=== PATIENT | female | born 1990 | race Caucasian/White ===

== ENCOUNTER 2020-05-05 19:04 | Emergency (ER) | payer BC, SELFPAY ==
[2020-05-05 20:04] VITALS: PULSE 110; RESP 20; TEMP 37; O2SAT 97; BMI 25.8
--- NOTE | 2020-05-05 20:14 | HMH.EDUTC ---
[facility] [place] Impression: COVID-19 virus test result unknown Disposition: Home, Self-Care Condition on Discharge: Good Instructions: Preventing the Spread of Coronavirus Discharge Instructions Additional Instructions: if symtpms worsen or no improvement return or be seen on ed Referrals: Wyatt Alex MD [Primary Care Provider] - Time of Disposition: 20:19 Medical Decision Making - Harry Inquiry Pt receiving controlled substance: No Vital Signs: 05/05/20 20:04 Temperature 98.6 F Temperature Source Oral Pulse Rate [Right] 110 H Respiratory Rate 20 02 Sat by Pulse Oximetry 97 Oxygen Delivery Method Room Air Orders (Tests/Meds): ORDERS Category Date Time Status SARS-CoV-2, [place]ARAN ([place]) Stat Lab 05/05/20 19:25 [place] [facility] [place] - General Chief complaint: Urgent [facility] Center Stated complaint: COVID Testing Time Seen by Provider: 05/05/20 20:14 Mode of Arrival: Ambulatory Source of Information: Patient Limitations: No Limitations Description of Symptoms (Recalled from Triage Doc. by RN): REQUESTING COVID TESTING. TESTED POSITIVE THIS WEEK. ONLY SYMPTOMS REPORTED IS LOW-GRADE FEVER HEENT Symptoms (Recalled from RN notes): No Resp Symptoms (Recalled from RN notes): No Skin Symptoms (Recalled from RN notes): No MS Symptoms (Recalled from RN notes): No Functional Status (Recalled from RN notes): WNL - History of Present Illness Provider Complaint: 30 yr old female presents for covid testing. pt states positive for covid and has been isolated to the [facility]. Pt states no symptoms, only low grade fever of 99.7 - Related Data Home Medications Medication Instructions Recorded Confirmed levocetirizine 5 mg tablet mg PO 09/19/19 09/19/19 cefdinir 300 mg capsule mg PO 12/03/19 12/03/19 metoclopramide HCl 5 mg tablet PO 12/03/19 12/03/19 sertraline 25 mg tablet mg PO 12/03/19 12/03/19 Previous Rx's Medication Instructions Recorded lidocaine HCl 2 % mucosal solution 1 applic MUCOUS MEM QID PRN #100 ml 12/03/19 Allergies Allergy/AdvReac Type Severity Reaction Status Date / Time No Known Allergies Allergy Verified 12/03/19 16:50 - Worker's Comp Is this a Worker's Comp case?: No [facility] History - Hepatitis A Screen Drug use history?: No High risk sexual behaviors?: No History of sexually transmitted infection?: No Currently employed?: No Childcare worker?: No Do you have indoor plumbing?: Yes Do you have electricity?: Yes Attestation statement:: This patient has been screened for Hepatitis A risk factors. I have reviewed the patient's past medical history: Yes Other Surgeries: Yes: Hernia Repair Amputation: No Fractures: No - Social History Smoking Status: Never smoker Alcohol Intake: never Substance Use Type: denies use Occupational Status: other Housing: house Household Members: family Family Hx:: No significant family history ROS Obtained: Yes Systems reviewed as appropriate & no additional complaints - Constitutional Constitutional: Reports system reviewed and no additional complaints, except as docu, Reports fever(s) - Eyes Eyes: Reports system reviewed and no additional complaints, except as docu, Denies itchy eyes - ENT Ears, Nose, Mouth, and Throat: Reports system reviewed and no additional complaints, except as docu, Denies sore throat - Cardiovascular Cardiovascular: Reports system reviewed and no additional complaints, except as docu, Denies chest pain at rest - Respiratory Respiratory: Yes system reviewed and no additional complaints, except as docu, No chest congestion - Gastrointestinal Gastrointestingal: Reports: system reviewed and no additional complaints, except as docu. Denies: nausea, vomiting - Musculoskeletal Musculoskeletal: Reports system reviewed and no additional complaints, except as docu, Denies joint stiffness - Integumentary/Breasts Skin/Breast: Reports system reviewed and no additional comp
[2020-05-05 20:50] VITALS: BP 00/00; PULSE 110; RESP 20; TEMP 37; O2SAT 97
[2020-05-07 09:01] LABS: Covid-19 Nasal PCR Sendout UK Not Detected
== END 2020-05-05 20:50 | disposition home or self-care (01) ==
PROVIDERS: Emergency Provider Nurse Practitioner Family; PCP Family Medicine
DX: Z20.828 Contact with and (suspected) exposure to other viral communicable diseases (principal)
CPT/HCPCS: 99201; U0003

== ENCOUNTER 2021-06-09 12:00 | Emergency (ER) | payer BC, SELFPAY ==
[2021-06-09 12:25] VITALS: BP 140/83; PULSE 76; RESP 21; TEMP 37; O2SAT 99; BMI 31.6
--- NOTE | 2021-06-09 13:14 | HMH.EDUTC ---
[facility] [place] Clinical Impression: Maxillary sinusitis, acute Qualifiers: Recurrence: non-recurrent Qualified Code(s): J01.00 - Acute maxillary sinusitis, unspecified Disposition: Home, Self-Care Condition on Discharge: Good Instructions: Sinusitis, DI for Sinusitis Additional Instructions: Start antibiotic patient to take as ordered for a full length of time even if you feel better. Sinus infections do not get better overnight. It may take 2-3 days to notice much improvement so be sure to use conservative measures as discussed for symptoms. Flonase 1 spray each nostril daily to help with nasal congestion, sinus and ear pressure/information Increase fluids Humidifier/vaporizer as needed Tylenol and ibuprofen as needed for fever or pain. If symptoms do not improve or get worse return or be seen in the ER Follow-up with primary care this week Prescriptions: Fluticasone Propionate [Flonase 50mcg nasal spray 16gm] 1 spr NS DAILY 14 Days #9.9 ml Transmission Status: Pending to [id number] Azithromycin [Zithromax 250mg tab] 250 mg PO DIRECTED #6 tab Transmission Status: Pending to [id number] Referrals: Wyatt Alex MD [Primary Care Provider] - Time of Disposition: 13:18 Medical Decision Making - Harry Inquiry Pt receiving controlled substance: No Vital Signs: 06/09/21 12:25 Temperature 98.6 F Temperature Source Oral Pulse Rate [Right Brachial] 76 Respiratory Rate 21 Blood Pressure [Right Arm] 140/83 Blood Pressure Mean [Right Arm] 102 Blood Pressure Source [Right Arm] Automatic Cuff Blood Pressure Position [Right Arm] Sitting 02 Sat by Pulse Oximetry 99 Oxygen Delivery Method Room Air Orders (Tests/Meds): ED MEDICATIONS Discontinued Medications Generic Name Dose Route Start Last Admin Trade Name Freq PRN Reason Stop Dose Admin Dexamethasone Sodium Phosphate 4 mg 06/09/21 13:12 Dexamethasone 4mg/Ml 1ml Vial IM 06/09/21 13:13 ONCE ONE [facility] [place] - General Chief complaint: Urgent Treatment Center Stated complaint: ear pain Time Seen by Provider: 06/09/21 13:14 Mode of Arrival: Ambulatory Source of Information: Patient Limitations: No Limitations Description of Symptoms (Recalled from Triage Doc. by RN): PATIENT C/O POSSIBLE SINUS INFECTION X 1 WEEK HEENT Symptoms (Recalled from RN notes): No Resp Symptoms (Recalled from RN notes): No Skin Symptoms (Recalled from RN notes): No MS Symptoms (Recalled from RN notes): No Functional Status (Recalled from RN notes): WNL - History of Present Illness Provider Complaint: 31 yr old female preents for sinus pressure,congestion,maxillary pain and pain in the teeth - Related Data Home Medications Medication Instructions Recorded Confirmed levocetirizine 5 mg tablet mg PO 09/19/19 09/19/19 cefdinir 300 mg capsule mg PO 12/03/19 12/03/19 metoclopramide HCl 5 mg tablet PO 12/03/19 12/03/19 sertraline 25 mg tablet mg PO 12/03/19 12/03/19 Previous Rx's Medication Instructions Recorded lidocaine HCl 2 % mucosal solution 1 applic MUCOUS MEM QID PRN #100 ml 12/03/19 Azithromycin [Zithromax 250mg 250 mg PO DIRECTED #6 tab 06/09/21 tab] Fluticasone Propionate [Flonase 1 spr NS DAILY 14 Days #9.9 ml 06/09/21 50mcg nasal spray 16gm] Allergies Allergy/AdvReac Type Severity Reaction Status Date / Time No Known Allergies Allergy Verified 12/03/19 16:50 - Worker's Comp Is this a Worker's Comp case?: No [facility] History - Hepatitis A Screen Drug use history?: No High risk sexual behaviors?: No History of sexually transmitted infection?: No Currently employed?: No Childcare worker?: No Do you have indoor plumbing?: Yes Do you have electricity?: Yes Attestation statement:: This patient has been screened for Hepatitis A risk factors. Other Surgeries: Yes: Hernia Repair Amputation: No Fractures: No - Social History Smoking Status: Never smoker Alcohol Intake: never Sub
[2021-06-09 13:30] VITALS: BP 140/83; PULSE 76; RESP 21; TEMP 37; O2SAT 99
== END 2021-06-09 13:45 | disposition home or self-care (01) ==
PROVIDERS: Emergency Provider Nurse Practitioner Family; PCP Family Medicine
DX: J01.00 Acute maxillary sinusitis, unspecified (principal)
CPT/HCPCS: 96372; 99202; G0463

== ENCOUNTER → 2022-12-29 17:04 | Outpatient (CLI) | payer BC, SELFPAY | PROVIDERS: PCP Student in an Organized Health Care Education/Training Program; Visit Provider Student in an Organized Health Care Education/Training Program | DX: J02.0 Streptococcal pharyngitis (principal); B95.4 Other streptococcus as the cause of diseases classified elsewhere | CPT/HCPCS: 87070; 87077; 87186 ==

== ENCOUNTER → 2023-02-18 19:32 | Outpatient (CLI) | payer BC, SELFPAY ==
[2023-02-18 20:17] LABS: Basophils % 0.4 % (0.1-2.0); Eosinophils # 0.1 K/mm3 (0.0-0.4); Eosinophils % 1.3 % (0.1-12.0); Hematocrit 39.8 % (37.0-47.0); Hemoglobin 13.2 g/dL (12.2-16.2); Lymphocytes # 2.9 K/mm3 (0.7-4.5); Mean Corpuscular Hemoglobin 30.7 pg (27.0-31.2); Mean Corpuscular Volume 92.9 fl (81-99); Mean Platelet Volume 8.6 fl (7.4-10.4); Monocytes # 0.3 K/mm3 (0.1-1.0); Monocytes % 4.1 % (1.7-9.3); Neutrophils % 59.2 % (37.0-80.0); Platelet Count 318 K/mm3 (142-424); Red Blood Count 4.29 M/mm3 (4.20-5.40); Red Cell Distribution Width 12.8 % (11.5-17.5); White Blood Count 8.4 K/mm3 (4.8-10.8)
[2023-02-18 21:58] LABS: Alanine Aminotransferase 20 U/L (12-78); Albumin Level 4.8 g/dl (3.5-5.0); Albumin/Globulin Ratio 1.8 (1.1-1.8); Alkaline Phosphatase 95 U/L (38-126); Anion Gap 19.2 mEq/L (5-15); Aspartate Amino Transferase 26 U/L (14-36); Blood Urea Nitrogen 12 mg/dl (7-17); Calcium 9.1 mg/dl (8.4-10.2); Carbon Dioxide 26 mmol/L (22.0-30.0); Chloride 98 mmol/L (98-107); Chol/HDL Ratio 3.6 (1-3.5); Cholesterol 136 mg/dl (140-200); Estimated Glomerular Filt Rate 97 ml/min (>60); GFR (African American) 117 ML/MIN (>60); Globulin 2.6 g/dL (1.3-3.2); Glucose 76 mg/dl (74-100); HDL Cholesterol 38 mg/dl (40-60); Potassium 4.2 mmoL/L (3.5-5.1); Sodium 139 mmol/L (136-145); Total Protein,Serum 7.4 g/dl (6.3-8.2); Triglycerides 154 mg/dl (30-150); VLDL Cholesterol 31 mg/dL (0-40)
[2023-02-18 22:13] LABS: 25-OH Vitamin D, Total 32.2 ng/mL (30-100)
[2023-02-18 22:31] LABS: Thyroid Stimulating Hormone 2.23 uIU/mL (0.465-4.68)
[2023-02-18 22:49] LABS: Vitamin B12 261 pg/mL (239-931)
[2023-02-20 15:04] LABS: FSH 5.4 mIU/mL (.); Testosterone,Total 25 ng/dL (8-60)
[2023-02-26 21:59] LABS: Estrogen 191 pg/mL (.)
== END ==
PROVIDERS: PCP Physician Assistant; Visit Provider Physician Assistant
DX: M25.562 Pain in left knee (principal); M25.561 Pain in right knee; E53.8 Deficiency of other specified B group vitamins; Z79.84 Long term (current) use of oral hypoglycemic drugs
CPT/HCPCS: 80053; 80061; 82306; 82607; 82672; 83001; 83002; 83735; 84403; 84443; 85025

== ENCOUNTER → 2023-04-08 14:34 | Outpatient (CLI) | payer BC, SELFPAY ==
[2023-04-08 15:37] LABS: Vitamin B12 > 1000 pg/mL (239-931)
== END ==
PROVIDERS: PCP Physician Assistant; Visit Provider Physician Assistant
DX: E53.8 Deficiency of other specified B group vitamins (principal)
CPT/HCPCS: 82607

== ENCOUNTER 2024-05-18 11:35 | Outpatient (CLI) | payer BC, SELFPAY ==
[2024-05-18 17:53] LABS: Coronavirus 19, PCR Not Detected (NotDetected); Influenza A, PCR Not Detected (NotDetected); Influenza B, PCR Not Detected (NotDetected)
== END 2024-05-18 23:59 | disposition home or self-care (01) ==
LOC: LAB.DROPOF 05-19 10:28
PROVIDERS: PCP Nurse Practitioner Family; Visit Provider Nurse Practitioner Family
DX: J02.9 Acute pharyngitis, unspecified (principal)
CPT/HCPCS: 87636